=== PATIENT | female | born 1965 | race American Indian/Alaskan Native ===

== ENCOUNTER 2016-12-26 19:44 | Emergency (ER) | payer MEDICARE ==
[~2016-12-26 19:44] MED LIST: NACL 0.9% 1000 ML 1,000 ML ONE
[2016-12-26] MEDS: AMIDATE IV ONE (19:50)
[2016-12-26] MEDS ORDERED: QUELICIN ONE (19:50)
[2016-12-26] MEDS ORDERED: AMIDATE IV ONE (19:50)
[2016-12-26] MEDS: QUELICIN IV ONE (19:51)
[2016-12-26] MEDS ORDERED: NS IV ONE (20:02)
[2016-12-26] MEDS ORDERED: VERSED IV ONE (20:02)
[2016-12-26] MEDS ORDERED: SUBLIMAZE ONE ×2 (20:03→20:50)
[2016-12-26] MEDS: SUBLIMAZE IV ONE ×2 (20:11→21:00)
--- NOTE | 2016-12-26 20:15 | Emergency Department Report ---
ED Syncope HPI - General Stated Complaint: UNRESPONSIVE Time Seen by Provider: 12/26/16 20:08 Source: EMS Exam Limitations: other (ed caveat for unresponsive) - History of Present Illness Initial Comments: This is a 51-year-old female who presents to the ED in acute distress. According to EMS family found the patient unresponsive sitting up in a chair. As soon as they saw her sitting up in the chair unresponsive she slumped over and fell to the ground. She seemed to be clenching her jaw at the time as well. When EMS found her she was still clenching her jaw did not see any other seizure activity however. She had loss of bladder control. On on route to the ED patient did have vomit 1 as well. Family gives history of diabetes as well they report an aneurysm. - Related Data Allergies/Adverse Reactions: Allergies Unable to Assess Allergy (Verified 12/26/16 20:48) pt unresponsive ED Review of Systems ROS: Stated complaint: UNRESPONSIVE Other details as noted in HPI Comment: Unobtainable due to pts medical conditions ED Physical Exam - General Limitations: Altered Mental Status, Other (unresponsive) General appearance: obese, other (unresponsive) - Head Head exam: Present: atraumatic - Eye Pupils: Present: other (R glass eye. L pupil very sluggish at 5mm. Minimal dolls eye.) - ENT ENT exam: Present: mucous membranes moist, other (small abrasion to the distal tip of the tongue. Vomitus noted in the posterior pharynx. No other specific or lesions noted.) - Neck Neck exam: Present: other (sign of trauma). Absent: lymphadenopathy - Respiratory Respiratory exam: Present: other (initially was spontaneous respirations. Somewhat coarse sounding diffusely.) - Cardiovascular Cardiovascular Exam: Present: regular rate, normal rhythm. Absent: systolic murmur, diastolic murmur - GI/Abdominal GI/Abdominal exam: Present: soft, normal bowel sounds. Absent: distended - External exam: Present: normal external exam, other (maxi pad in place) - Extremities Exam Extremities exam: Present: normal inspection, other (equal distal pedal pulses bilaterally equal distal radial pulses bilaterally). Absent: pedal edema - Back Exam Back exam: Present: other (no obvious lesions no bony step-off appreciated) - Neurological Exam Neurological exam: Present: other (unresponsive. Does have a gag intact. Somewhat sluggish. She does withdraw somewhat to IV placement in the right upper extremity. No withdraw on the left upper extremity. No spontaneous movement noted on the left on the lower extremities bilaterally. Some decerebrate posturing noted in the left upper extremity.) - Skin Skin exam: Present: warm, dry, intact ED Course Vital Signs 12/26/16 12/26/16 12/26/16 20:08 21:00 21:05 Temperature Pulse Rate 57 L 55 L Respiratory 14 20 Rate Blood Pressure 218/92 Blood Pressure 228/90 [Left] O2 Sat by Pulse 94 100 100 Oximetry 12/26/16 12/26/16 22:07 22:47 Temperature 97.8 F Pulse Rate 95 H 66 Respiratory 14 22 Rate Blood Pressure 219/121 Blood Pressure 196/59 [Left] O2 Sat by Pulse 94 99 Oximetry - Reevaluation(s) Reevaluation #1: CT scan did reveal a large basal ganglia bleed. There is significant bleeding into the lateral ventricle as well as the third and fourth ventricle. There is a 50 mm midline shift to the right as well. This correlates with the patient's needs. Progressive blood pressure lowering was begun with nicardipine. Patient was also placed on a fentanyl drip for sedation with intubation. With the anticipation that this would also help with her blood pressure. We were given to try to target blood pressure by neurosurgery from [facility] of 165 systolic. Labs are noted. Hyperglycemia is noted as well. Patient will be transferred to [facility] by [facility]. Her mental status is quite concerning here I am worried for poor outcome. Reevaluation #2: I did spend a significant amount of time with patient's family regarding her condition as well as updating regarding results. - Intubation Time Out Performed: No Sedative: Etomidate Mg Given: 20 Paralytic: Succinylcholine Mg Given: 100 Laryngoscope: Sonja Size: 3 ET Tube Size: 7.5 Tube Secured Depth (cm): 22 Tube Secured Location: lips Tube Placement Confirmation: visualized tube passing t, equal breath sounds bilat, no breath sounds over epi, confirmation by capnometr Patient Tolerated Procedure: other (initially tried to use the kaleidoscope for intubation. It's were easily visualized however I could not get the tube to pass. Switched over to hand held mac for direct visualization.) Intubation Complications: difficult intubation ED Medical Decision Making - Lab Data Result diagrams: 12/26/16 20:00 12/26/16 20:00 - EKG Data EKG shows normal: sinus rhythm Rate: normal - EKG Data Interpretation: nonspecific ST-T wave tracey (T-wave inversion noted in V4 V5V6. No reciprocal changes.) - Radiology Data Radiology results: report reviewed, image reviewed As per verbal report from radiologist intraparenchymal hemorrhage in the left basal ganglia. With lateral and third and fourth ventricles filling with blood. There is a 50 mm right sided shift. Area of hemorrhage measures proximal by 5 x 6 cm. There is minimal vasogenic edema surrounding this area. #1 differential per radiologist as hypertensive bleed. Critical Care Time: Yes Critical care time in (mins) excluding proc time.: 35 Critical care attestation.: If time is entered above; I have spent that time in minutes in the direct care of this critically ill patient, excluding procedure time. ED Disposition Clinical Impression: Intracranial hemorrhage, Hypertensive emergency, Hyperglycemia Respiratory failure Qualifiers: Chronicity: acute Respiratory failure complication: hypoxia Qualified Code(s): J96.01 - Acute respiratory failure with hypoxia Disposition: DC/TX PSY HOSP/PSY UNIT Is pt being admited?: No Does the pt Need Aspirin: No Condition: Stable Instructions: Hypertension (ED) Referrals: PRIMARY CARE, [Primary Care Provider] - 3-5 Days Time of Disposition: 22:07
[2016-12-26 20:32] LABS: Hemoglobin 13.4 gm/dl (10.1-14.3); Mean Corpuscular HGB Conc 31 % (30-34); Mean Corpuscular Hemoglobin 27 pg (28-32); Mean Corpuscular Volume 86 fl (79-97); Red Cell Distribution Width 14.7 % (13.2-15.2); White Blood Count 12.4 K/mm3 (4.5-11.0)
[2016-12-26 20:36] LABS: Platelet Count 209 K/mm3 (140-440)
[2016-12-26 20:37] LABS: Partial Thromboplastin Time 31.9 Sec. (24.2-36.6)
[2016-12-26 20:50] LABS: Alanine Aminotransferase 12 units/L (7-56); Albumin 3.5 g/dL (3.9-5); Albumin/Globulin Ratio 0.9 %; Alkaline Phosphatase 123 units/L (35-129); Anion Gap 21 mmol/L; BUN/Creatinine Ratio 15.45; Bilirubin,Total 0.7 mg/dL (0.1-1.2); Blood Urea Nitrogen 17 mg/dL (7-17); Calcium 9.5 mg/dL (8.4-10.2); Carbon Dioxide 18 mmol/L (22-30); Chloride 100.4 mmol/L (98-107); Creatine Kinase 107 units/L (30-135); Creatine Kinase MB 1.7 ng/mL (0.0-4.0); Glucose 414 mg/dL (65-100); Potassium 3.5 mmol/L (3.6-5.0); Sodium 136 mmol/L (137-145); Total Protein 7.6 g/dL (6.3-8.2)
--- NOTE | 2016-12-26 20:54 | Cat Scan Report ---
FINAL REPORT EXAM: CT HEAD/BRAIN WO CON HISTORY: suspected stroke TECHNIQUE: Standard unenhanced CT of the head at 5.0 millimeter axial increments PRIORS: None. FINDINGS: There is an acute parenchymal hemorrhage involving the left basal ganglia. This area measures approximately 4.9 x 6.2 cm (axial image 32). There is extension of the hemorrhage into the ventricular system with acute blood identified in both lateral ventricles (left greater than right), the 3rd ventricle, and the 4th ventricle. There is a 15 mm midline shift to the right. There is significant mass effect on the left lateral ventricle and 3rd ventricle. Early subfalcine herniation is identified involving the left frontal horn. The suprasellar cisterns are minimally seen. The ambient cisterns and cerebellopontine angles are still visible. IMPRESSION: Acute parenchymal hemorrhage involving the left basal ganglia region. Hypertension is most likely etiology. There is extension of the hemorrhage into the ventricular system. Significant mass effect and midline shift is noted to the right . There is early subfalcine herniation but no definite downward herniation identified at this time.
[2016-12-26] MEDS: CARDENE DRIP 40 MG/200 ML 40 MG/200 ML BAG IV SCH (21:25)
[2016-12-26 21:29] LABS: ISTAT Base Excess -6; ISTAT HCO3 20.3; ISTAT PCO2 42.3 (35-45); ISTAT PO2 404 (80-105); ISTAT SO2 100; ISTAT TCO2 22
[2016-12-26 21:29] LABS: Basophils % (Manual) 0 % (0.0-1.8); Blastocytes % (Manual) 0 %; Eosinophils % (Manual) 0 % (0.0-4.3)
[2016-12-26 21:30] LABS: Diff Status Complete; Ovalocytes Few; Platelet Estimate Consistent w Auto; Poikilocytosis Few
[2016-12-26] MEDS: fentaNYL DRIP Premix 2,000 MCG/100 ML BAG IV SCH (21:40)
[2016-12-26 22:51] VITALS: BP 196/59
[2016-12-26] MEDS: ZOFRAN IV ONE (23:16)
--- NOTE | 2016-12-27 09:27 | XRay Report ---
AP CHEST: HISTORY: Endotracheal tube placement No previous. An endotracheal tube terminates 2 cm superior to the stefany. A nasogastric tube is coiled in the fundus of the stomach. There is poor inspiration but the lungs are grossly clear. Heart size is at the upper limits of normal. No pneumothorax or pleural fluid appreciated. IMPRESSION: Adequate placement of endotracheal tube. Borderline heart size. Lungs clear.
== END 2016-12-26 22:55 ==
LOC: ED 19:44
DX: I62.9 Nontraumatic intracranial hemorrhage, unspecified (principal); J96.01 Acute respiratory failure with hypoxia; I16.1 Hypertensive emergency; E11.65 Type 2 diabetes mellitus with hyperglycemia
CPT/HCPCS: 31500; 36415; 51702; 70450; 71010; 80053; 82550; 82553; 82803; 84484; 84702; 85007; 85025; 85610; 85670; 85730; 86850; 86900; 86901; 93005; 93010; 96365; 96368; 96375; 96376; 99291; J0330; J3010; J7030; 94002; J2250